=== PATIENT | male | born 1940 | race Caucasian/White ===

== ENCOUNTER → 2021-04-10 | Outpatient (CLI) | payer MEDICARE, OTHER ==
--- NOTE | 2021-04-10 15:26 | CARD ---
MR#: [id number] Date of Study: 04/10/2021 Ordering Physician: WILFRED BRUNNER, Referring Physician: WILFRED BRUNNER, Tech: Rashida Alamo, [facility] APPROVED REPORT EXAM: Two-dimensional and M-mode echocardiogram with Doppler and color Doppler. Other Information Quality : AverageHR: 69bpm Rhythm : LBBB INDICATION Arrhythmia 2D DIMENSIONS Left Atrium(2D)3.3 (1.6-4.0cm)IVSd1.0 (0.7-1.1cm) Aortic Root(2D)3.7 (2.0-3.7cm)LVDd5.9 (3.9-5.9cm) LVOT Diameter2.0 (1.8-2.4cm)PWd0.9 (0.7-1.1cm) LVDs4.5 (2.5-4.0cm)FS (%) 23.7 % SV80.5 mlLVEF(%)46.6 (>50%) Aortic Valve AoV Peak Pascual.111.5cm/sAoV VTI21.4cm AO Peak GR.5.0mmHgLVOT Peak Pascual.79.1cm/s LVOT VTI 15.97cmAO Mean GR.2mmHg JAMEL (VMAX)2.37ec8PZI (VTI)2.37cm2 Mitral Valve MV E Jfevdqaw59.1cm/sMV E Peak Gr.126mmHg MV DECEL OODR374gmPC A Ttayqdds06.1cm/s MV E Mean Gr.72mmHgE/A Ratio1.3 Tricuspid Valve TR P. Safkzgrk596ax/sRAP MXVBBUWU2cxXy TR Peak Gr.95ymFkYJGT30kbAq LEFT VENTRICLE The Left Ventricle is borderline dilated. There is borderline concentric left ventricular hypertrophy . The systolic function is severely impaired. EF 35% Septal motion suggestive of conduction defect. O therwise, there is severe global hypokinesis. Transmitral Doppler flow pattern is Grade II-pseudonorm al filling dynamics. RIGHT VENTRICLE The right ventricle is normal size. There is normal right ventricular wall thickness. The right ventr icular systolic function is normal. ATRIA The left atrium is borderline dilated. The right atrium size is normal. The interatrial septum is int act with no evidence for an atrial septal defect or patent foramen ovale as noted on 2-D or Doppler i maging. AORTIC VALVE The aortic valve is normal in structure and function. Doppler and Color Flow revealed trace aortic re gurgitation. There is no significant aortic valvular stenosis. Calculated aortic valve area is 2.4 cm 2 with maximum pressure gradient of 5 mmHg and mean pressure gradient of 3 mmHg. MITRAL VALVE The mitral valve is normal in structure and function. There is no evidence of mitral valve prolapse. There is no mitral valve stenosis. Doppler and Color-flow revealed mild mitral regurgitation. TRICUSPID VALVE The tricuspid valve is normal in structure and function. Doppler and Color Flow revealed trace tricus pid regurgitation with an estimated PAP of 36 mmHg. There is no tricuspid valve stenosis. PULMONIC VALVE The pulmonic valve is not well visualized. Doppler and Color Flow revealed mild pulmonic valvular reg urgitation. There is no pulmonic valvular stenosis. GREAT VESSELS The aortic root is normal in size. The IVC is normal in size and collapses >50% with inspiration. PERICARDIAL EFFUSION There is no evidence of significant pericardial effusion. Critical Notification Critical Value: No <Conclusion> The systolic function is severely impaired. EF 35% Septal motion suggestive of conduction defect. Otherwise, there is severe global hypokinesis. Doppler and Color-flow revealed mild mitral regurgitation. Signed by : Wilfred Brunner, Electronically Approved : 04/10/2021 15:25:25
== END ==
LOC: ECHO 10:56
PROVIDERS: ATTEND Internal Medicine Cardiovascular Disease
DX: I08.8 Other rheumatic multiple valve diseases (principal); I49.9 Cardiac arrhythmia, unspecified
CPT/HCPCS: 93306

== ENCOUNTER 2021-04-22 20:14 | Emergency (ER) | payer MEDICARE, OTHER ==
[~2021-04-22] VITALS: Ht 170.2 cm; Wt 64.5 kg
--- NOTE | 2021-04-22 20:18 | PHYS DOC ---
Past History Past Medical History: Anemia, Arthritis, CAD, Cancer, Hypertension, Prostatitis, UTI Past Medical History IV chemotherapy started , Pt. to be on oral therapy after two weeks Past Surgical History: No Surgical History Past Surgical History Resection of Common Duct and pancreas- Mass 02/01/2021 Alcohol Use: None Drug Use: None General Adult HPI: HPI: ". .. I having some abd. pain.... Down here on the right. It is a 10 out of 10 pain..". " I t feels like someone stabbing me in the back.. and it runs down to my lower Rt. Abdomen...." Patient is a 80 year old male who presents with above hx and complaints of rt. lower abdomen pain. Patient is retired of 35 years in [employer]. Patient states pain is started today and right lower quadrant. He did have chemotherapy on 04/20 for treatment of resected mass of his common duct and pancreas. Patient previously seen in 01/31 when he developed hepatorenal syndrome and was transferred to [facility] to Dr. Montanez and Dr. Schneider for care.. Patient denies any intake of bad food. Has been having normal stools. No history of fever and chills. No history of travel. No history of specific ill contacts. Clinically immunosuppressed because of chemotherapy. Pt. follows with Dr. Avila. Pt. follows at [place]. patient does have a past medical history of hypertension, prostate cancer, irregular heart rate, arthritis, anemia, hyponatremia, hyperkalemia, hyper magnesium, elevated LFTs, ileus, hepatorenal syndrome, arthritis urinary retention. Review of Systems: Review of Systems: Constitutional: Denies fever or chills Eyes: Denies change in visual acuity HENT: Denies nasal congestion or sore throat Respiratory: Denies cough or shortness of breath Cardiovascular: Denies chest pain or edema GI: Complains of right lower abdominal pain, nausea. Denies, vomiting, bloody stools or diarrhea : Denies dysuria Musculoskeletal: Denies back pain or joint pain Integument: Denies rash Neurologic: Denies headache, focal weakness or sensory changes Endocrine: Denies polyuria or polydipsia Lymphatic: Denies swollen glands Psychiatric: Denies depression or anxiety Family History: Family History: Noncontributory to presentation Current Medications: Current Meds: See nursing for home meds Allergies: Allergies: Allergies Coded Allergies Type Severity Reaction Last Updated Verified No Known Drug Allergies 04/10/21 No Physical Exam: PE: Constitutional: In acute distress, non-toxic appearance. [] HENT: Normocephalic, atraumatic, bilateral external ears normal, oropharynx moist, no oral exudates, nose normal. [] Eyes: PERRLA, EOMI, conjunctiva normal, no discharge. Glasses Neck: Normal range of motion, no tenderness, supple, no stridor. [] Cardiovascular:Heart rate regular rhythm, no murmur, PMI slightly to the left. Bedside monitor shows a bundle branch block. Lungs & Thorax: Bilateral breath sounds clear to auscultation [] Abdomen: Bowel sounds decreased, soft, wound to right lower quadrant, generalized tenderness, no masses, no pulsatile masses. Old surgery scar Skin: Warm, dry, no erythema, no rash. [] Back: No tenderness, no CVA tenderness. [] Extremities: No tenderness, no cyanosis, no clubbing, ROM intact, no edema. Arthritic changes. Mild psoas sign on right. No cording. Neurologic: Alert and oriented X 3, moves all extremities on request, does have distal sensory,, no focal deficits noted. [] Psychologic: Affect anxious, judgement normal, mood normal. [] EKG: EKG: My interpretation EKG shows a sinus rhythm at 65 bpm. Left axis. Left bundle. Abnormal EKG. At 2055 hrs. [] Radiology/Procedures: Radiology/Procedures: [][place] [address] IMAGING REPORT Signed PATIENT: APRIL ENRIQUEZ FACCOUNT: [id number] : 1940 LOCATION: ER AGE: 80 SEX: M EXAM STATUS: REG ER ORD. PHYSICIAN: DARIUS CHO MD REASON: abd pain with vomiting, pancreatic cancer - 75mls omni 300 PROCEDURE: CT CHEST ABD PELVIS W/CONTRAST CT chest with contrast, CT abdomen pelvis with contrast. HISTORY: Abdominal pain, vomiting, pancreatic cancer CT scan of the chest was done somewhat delayed from the contrast injection post contrast. There is bilateral gynecomastia. There are small bilateral pleural effusions. There are emphysematous changes in the lungs. There is a cons olidating infiltrate in the right upper lobe, which has mildly worsened compared to the prior exam. Infiltrative mass would be possible. There is increased infiltrate or infiltrative mass in the right lower lobe compared to the prior exam. There is also mild interval increase in the right middle lobe disease compared to the prior study. Patient has now developed infiltrate in the left lower lobe. There is peribronchial thickening. Lymphangitic tumor can have this pattern. There is mild infiltrate in the anterior lingula. Mediastinal lymph nodes are mildly prominent in the aortopulmonary window compared to the prior study. IMPRESSION: 1. Small bilateral effusions with increase from the prior study. 2. Peribronchial thickening and bilateral areas of infiltrate more on the right than on the left which could be pneumonia but infiltrative tumor or lymphangitic tumor can have this pattern as well, there has been worsening of the pattern since the prior CT. End impression CT abdomen pelvis CT abdomen pelvis was done following injection of 75 mL Omnipaque 300 contrast. A liver lesion is not identified. There is gas in the intrahepatic bile ducts. The patient's had a cholecystectomy. Spleen is unremarkable. Adrenal glands are normal. There is no left renal mass. There is right hydronephrosis and dilatation the proximal ureter. There is a 4 mm calculus in the proximal right ureter. There is increased stool in the colon. There is dilatation of the pancreatic duct. There is apparently been resection of the head of the pancreas. There is a low-density cyst or lymph node in front of the left renal vein unchanged from the prior study, measuring 1.5 cm. There is no ascites. Prostate is enlarged. Appendix is normal. IMPRESSION: 1. 4 mm calculus in the proximal right ureter with right hydronephrosis. 2. low-density lymph node measuring 1.5 cm anterior to the left renal vein. 3. No hepatic mass noted. 4. No new abdominal mass noted. PQRS Compliance Statement: One or more of the following individualized dose reduction techniques were utilized for this examination: 1. Automated exposure control 2. Adjustment of the mA and/or kV according to patient size 3. Use of iterative reconstruction technique Electronically signed by: Uriah Veloz MD (04/22/2021 11:09 PM) [facility] DICTATED AND SIGNED BY: URIAH VELOZ MD DATE: 04/22/21 [id number] CC: DARIUS CHO MD; FLETCHER AVILA ~MTH0 0 Heart Score: C/O Chest Pain: Yes HEART Score for Chest Pain: HEART Score for Chest Pain Response (Comments) Value History Moderately Suspicious 1 ECG Nonspecific Repolarizatio 1 Age > 65 2 Risk Factors 1 or 2 Risk Factors 1 Troponin < Normal Limit 0 Total 5 Risk Factors: Risk Factors: DM, Current or recent (<one month) smoker, HTN, HLP, family history of CAD, obesity. Risk Scores: Score 0 - 3: 2.5% MACE over next 6 weeks - Discharge Home Score 4 - 6: 20.3% MACE over next 6 weeks - Admit for Clinical Observation Score 7 - 10: 72.7% MACE over next 6 weeks - Early Invasive Strategies Course & Med Decision Making: Course & Med Decision Making Pertinent Labs and Imaging studies reviewed. (See chart for details) Patient push clear fluids. Patient take Cipro 500 mg twice daily. Patient take Flomax daily. Patient to take Tylenol and ibuprofen for pain. For marked pain may take Vicoprofen. If no improvement need return admission for pain ma karime. Impression: 1. Abdomen Pain 2. Renal colic-4 mm stone right 3. Recent episode hepatorenal syndrome 4. Anemia 11.1 hgb 5. Hypernatremia 146 [] Dragon Disclaimer: Owen Disclaimer: This electronic medical record was generated, in whole or in part, using a voice recognition dictation system. Departure Departure: Referrals: FLETCHER AVILA (PCP) Scripts Hydrocodone/Ibuprofen (HYDROCODONE-IBUPROFEN 7.5-200 ) 1 Each Tablet 1 TAB PO PRN Q6HRS PRN for PAIN, #30 TAB 0 Refills Prov: DARIUS CHO MD 04/23/21 Ondansetron Hcl (ZOFRAN) 4 Mg Tablet 8 MG PO QIDPRN PRN for nv, #30 TAB Prov: DARIUS CHO MD 04/23/21 Tamsulosin Hcl (FLOMAX) 0.4 Mg Cap.er.24h 0.4 MG PO DAILY for renal colic for 10 Days, #10 CAP.SR Prov: DARIUS CHO MD 04/23/21 Ciprofloxacin (CIPRO) 500 Mg/5 Ml Allison.mc.rec 500 MG PO BID for dysuria for 7 Days, MISC Prov: DARIUS CHO MD 04/23/21 Owen Disclaimer This chart was dictated in whole or in part using Voice Recognition software in a busy, high-work load, and often noisy Emergency Department environment. It may contain unintended and wholly unrecognized errors or omissions. Dragon Disclaimer This chart was dictated in whole or in part using Voice Recognition software in a busy, high-work load, and often noisy Emergency Department environment. It may contain unintended and wholly unrecognized errors or omissions. DARIUS CHO MD Apr 22, 2021 20:18
[2021-04-22] MEDS ORDERED: IOHEXOL 240 MG/ML 50ML VIAL. ONE (20:28)
[2021-04-22] MEDS: IV RINGERS SOLUTION,LACTATED 1,000 ML IV SCH (20:42)
[2021-04-22] MEDS: ONDANSETRON PF 4 MG/2 ML VIAL. IVP ONE ×2 (20:43→21:16)
[2021-04-22] MEDS: FAMOTIDINE 20 MG/2 ML VIAL IVP ONE (20:43)
[2021-04-22 21:00] LABS: BASO % 1 % (0-3); EOS # 0.2 x10^3/uL (0.0-0.7); EOS % 2 % (0-3); HEMATOCRIT 35.4 % (39.0-53.0); HEMOGLOBIN 11.1 g/dL (13.0-17.5); LYMPH # 1.3 x10^3/uL (1.0-4.8); LYMPH % 16 % (24-48); MEAN CORPUSCULAR HEMOGLOBIN 25 pg (25-35); MEAN CORPUSCULAR HGB CONC 32 g/dL (31-37); MEAN CORPUSCULAR VOLUME 79 fL (79-100); MONO # 0.2 x10^3/uL (0.0-1.1); MONO % 3 % (0-9); NEUT # 6.2 x10^3uL (1.8-7.7); NEUT % 79 % (31-73); PLATELET COUNT 170 x10^3/uL (140-400); RED BLOOD COUNT 4.49 x10^6/uL (4.30-5.70); RED CELL DISTRIBUTION WIDTH 15.2 % (11.5-14.5); WHITE BLOOD COUNT 7.9 x10^3/uL (4.0-11.0)
[2021-04-22 21:05] LABS: CALCIUM 8.6 mg/dL (8.5-10.1); CREATININE 0.9 mg/dL (0.7-1.3); GFR 80.8; POTASSIUM 4.1 mmol/L (3.5-5.1)
[2021-04-22] MEDS: MORPHINE SULFATE 10 MG/ML SYRINGE. SQ ONE (21:09)
[2021-04-22 21:11] LABS: ALBUMIN 3.4 g/dL (3.4-5.0); DIRECT BILIRUBIN 0.3 mg/dL (0.0-0.2); TOTAL BILIRUBIN 0.7 mg/dL (0.2-1.0); TOTAL PROTEIN 6.3 g/dL (6.4-8.2)
[2021-04-22] MEDS ORDERED: CONTRAST GIVEN. MC PRN (21:15)
[2021-04-22] MEDS: IOHEXOL 300 MG/ML 75 ML VIAL. IV ONE (22:08)
[2021-04-22] MEDS: IOHEXOL 240 MG/ML 50ML VIAL. PO ONE (22:08)
[2021-04-22] MEDS ORDERED: cefTRIAXone SODIUM 1 GM VIAL ONE (22:46)
[2021-04-22] MEDS: IPRATRPIUM/ALBUTEROL 0.5/2.5MG 3 ML NEBU. NEB ONE (22:48)
--- NOTE | 2021-04-22 23:11 | RAD ---
CT chest with contrast, CT abdomen pelvis with contrast. HISTORY: Abdominal pain, vomiting, pancreatic cancer CT scan of the chest was done somewhat delayed from the contrast injection post contrast. There is bi lateral gynecomastia. There are small bilateral pleural effusions. There are emphysematous changes in the lungs. There is a consolidating infiltrate in the right upper lobe, which has mildly worsened co mpared to the prior exam. Infiltrative mass would be possible. There is increased infiltrate or infil trative mass in the right lower lobe compared to the prior exam. There is also mild interval increase in the right middle lobe disease compared to the prior study. Patient has now developed infiltrate i n the left lower lobe. There is peribronchial thickening. Lymphangitic tumor can have this pattern. T here is mild infiltrate in the anterior lingula. Mediastinal lymph nodes are mildly prominent in the aortopulmonary window compared to the prior study. IMPRESSION: 1. Small bilateral effusions with increase from the prior study. 2. Peribronchial thickening and bilateral areas of infiltrate more on the right than on the left whic h could be pneumonia but infiltrative tumor or lymphangitic tumor can have this pattern as well, ther e has been worsening of the pattern since the prior CT. End impression CT abdomen pelvis CT abdomen pelvis was done following injection of 75 mL Omnipaque 300 contrast. A l iver lesion is not identified. There is gas in the intrahepatic bile ducts. The patient's had a remberto cystectomy. Spleen is unremarkable. Adrenal glands are normal. There is no left renal mass. There is right hydronephrosis and dilatation the proximal ureter. There is a 4 mm calculus in the proximal rig ht ureter. There is increased stool in the colon. There is dilatation of the pancreatic duct. There i s apparently been resection of the head of the pancreas. There is a low-density cyst or lymph node in front of the left renal vein unchanged from the prior study, measuring 1.5 cm. There is no ascites. Prostate is enlarged. Appendix is normal. IMPRESSION: 1. 4 mm calculus in the proximal right ureter with right hydronephrosis. 2. low-density lymph node measuring 1.5 cm anterior to the left renal vein. 3. No hepatic mass noted. 4. No new abdominal mass noted. PQRS Compliance Statement: One or more of the following individualized dose reduction techniques were utilized for this examinat ion: 1. Automated exposure control 2. Adjustment of the mA and/or kV according to patient size 3. Use of iterative reconstruction technique Electronically signed by: Uriah Veloz MD (04/22/2021 11:09 PM) [facility]
--- NOTE | 2021-04-22 23:26 | EKG ---
[address] [address] Test Date: 2021-04-22 Test Time: 20:55:20 Pat Name: APRIL ENRIQUEZ Department: Room: Gender: M Business Line Manager: BED 5 : 1940 Requested By: DARIUS CHO Order Number: [id number] Reading MD: Measurements Intervals Calypso Rate: 65 P: 30 MN: 172 QRS: -7 QRSD: 134 T: 118 QT: 466 QTc: 485 Interpretive Statements SINUS RHYTHM LEFTWARD AXIS LEFT BUNDLE BRANCH BLOCK ABNORMAL ECG RI6.02 No previous ECG available for comparison
[2021-04-23] MEDS ORDERED: TAMSULOSIN 0.4 MG CAP.ER.24H. PO ONE (00:28)
[2021-04-23] MEDS ORDERED: CIPROFLOXACIN HCL 500 MG TABLET ONE (00:28)
[2021-04-23] MEDS ORDERED: KETOROLAC 30 MG/ML VIAL. ONE (00:28)
[2021-04-23] MEDS: TAMSULOSIN 0.4 MG CAP.ER.24H. PO ONE (00:30)
[2021-04-23] MEDS: CIPROFLOXACIN HCL 500 MG TABLET PO ONE (00:30)
[2021-04-23] MEDS: KETOROLAC 30 MG/ML VIAL. IVP ONE (00:31)
[2021-04-23] MEDS ORDERED: ONDA4TAB7 PO (00:32)
[2021-04-23] MEDS ORDERED: TAMS0.4C97 PO (00:32)
[2021-04-23] MEDS ORDERED: HYDR-1179 PO (00:32)
[2021-04-23] MEDS ORDERED: CIPR500S2 PO (00:32)
[2021-04-23 00:38] LABS: BARBITURATES NEG (NEG); BENZODIAZEPINES NEG (NEG); CANNABINOIDS NEG (NEG); COCAINE NEG (NEG); METHADONE NEG (NEG); OPIATES POS (NEG); PHENCYCLIDINE NEG (NEG)
[2021-04-23 00:39] LABS: BILIRUBIN,URINE NEG (NEG); CLARITY,URINE CLEAR; COLOR,URINE YELLOW; GLUCOSE,URINE NEG (NEG); NITRITE,URINE NEG (NEG); UROBILINOGEN,URINE 0.2 mg/dL (0.2 mg/dL)
[2021-04-23 00:40] LABS: BACTERIA,URINE 0 /HPF (0-FEW); HYALINE CASTS, URINE OCC /HPF; SQUAMOUS EPITHELIAL CELL,UR OCC /LPF; WBC,URINE 0 /HPF (0-4)
--- NOTE | 2021-04-23 00:41 | RAD ---
Three-view acute abdominal series. HISTORY: Abdominal pain, vomiting, pancreatic cancer 3 views were taken for an acute abdominal series. There are bilateral areas of infiltrate in the lung s. Heart is normal in size. There is possible small left effusion. There is a Port-A-Cath on the righ t. There is no free air on the upright view the abdomen or abnormal air-fluid levels. There is modera te stool in the right colon. IMPRESSION: 1. Moderate stool in the colon. 2. Nonspecific gas pattern without definite obstruction. 3. No free air noted. 4. Bilateral areas of infiltrate. Electronically signed by: Uriah Veloz MD (04/23/2021 12:39 AM) [facility]
[2021-04-23 00:42] VITALS: BP 148/81
[2021-04-23 00:43] LABS: AMPHETAMINE/METHAMPHETAMINE NEG (NEG)
== END 2021-04-23 00:41 | disposition home or self-care (01) ==
LOC: ER 20:14
DX: N23 Unspecified renal colic (principal); K76.7 Hepatorenal syndrome; D64.9 Anemia, unspecified; E87.0 Hyperosmolality and hypernatremia; I10 Essential (primary) hypertension
CPT/HCPCS: 36415; 71260; 74022; 74177; 80048; 80076; 80307; 81001; 82150; 82550; 83690; 84484; 85025; 85610; 85730; 93005; 94640; 96361; 96372; 96374; 96375; 96376; 99285; J1885; J2270; J2405; J3490; J7120; Q9966; Q9967

== ENCOUNTER → 2021-09-21 | Outpatient (CLI) | payer MEDICARE, OTHER ==
[~2021-09-21] MED LIST: CIPR500S2 PO; HYDR-1179 PO; IOHEXOL 240 MG/ML 50ML VIAL. ONE; IOHEXOL 300 MG/ML 75 ML VIAL. IV ONE; IOHEXOL 300 MG/ML 75 ML VIAL. ONE; ONDA4TAB7 PO; TAMS0.4C97 PO
--- NOTE | 2021-09-21 16:53 | RAD ---
EXAM: CT Chest, Abdomen and Pelvis without IV contrast CLINICAL HISTORY: Reason: PANCREATIC ADENOCARCINOMA, TUMOR REMOVED 01/2021 AND CHEMO / Spl. Instructio ns: DRINKING 1055/ CALL [facility]S HX RT INGUINAL HERNIA REPAIR / History: COMPARISON: None. TECHNIQUE: Helical CT of the chest, abdomen and pelvis was performed without intravenous contrast. Ax ial, coronal and sagittal reformatted images were generated. ---PQRS compliance statement - One or more of the following individualized dose reduction techniques were utilized for this study: 1. Automated exposure control 2. Adjustment of the mA and/or kV according to patient size 3. Use of iterative reconstruction technique--- FINDINGS: Lack of intravenous contrast limits evaluation of solid organs, vasculature, and lymph nodes. Chest: Right port terminates within the distal SVC. Relative hypoattenuation of the blood pool to the myocar dium from anemia. Coronary calcifications are seen. No pericardial effusion. No pleural effusion. No pneumothorax. Within the constraints of this noncontrast examination, no mediastinal or hilar lymphad enopathy. Bilateral gynecomastia is seen. Thyroid is unremarkable. Emphysematous changes are seen. Linear opacities lung bases, middle lobe and lingula likely scarring/ atelectasis. Small tree-in-bud opacities are seen in the middle lobe. Abdomen and Pelvis: Intrahepatic biliary gas. No focal liver lesion. Spleen is unremarkable. Adrenal glands are normal. C hanges of Whipple procedure are suggested. There is contrast within the intrahepatic and extrahepatic biliary ducts likely postprocedural. Moderate colonic stool content is seen. Appendix is normal. No small or large bowel dilatation is see n. Bladder is unremarkable. Prostate is enlarged measuring 5.3 cm in transverse dimension. Aorta is norm al in caliber with atherosclerotic calcifications. Right upper pole renal cyst. No hydronephrosis. No hydroureter. No abdominal or pelvic lymphadenopath y. The previously seen low density structure anterior to the left renal vein is not seen on this exam ination. Bones: No aggressive osseous lesion is seen. Degenerative changes of spine are noted. IMPRESSION: 1. No thoracic, abdominal or pelvic lymphadenopathy. 2. Postsurgical changes of the pancreatic head without evidence for local recurrence on this CT exam ination without IV contrast. Electronically signed by: Tereso Tovar MD (09/21/2021 4:51 PM) [facility]
== END ==
LOC: CT 10:40
PROVIDERS: ATTEND Physician Assistant
DX: C25.0 Malignant neoplasm of head of pancreas (principal); I25.10 Atherosclerotic heart disease of native coronary artery without angina pectoris; N62 Hypertrophy of breast; J43.9 Emphysema, unspecified; N40.0 Benign prostatic hyperplasia without lower urinary tract symptoms; N28.1 Cyst of kidney, acquired; R19.5 Other fecal abnormalities; I70.0 Atherosclerosis of aorta; M47.819 Spondylosis without myelopathy or radiculopathy, site unspecified
CPT/HCPCS: 71250; 74176

== ENCOUNTER → 2021-10-02 | Outpatient (CLI) | payer MEDICARE, OTHER ==
[~2021-10-02] MED LIST changes: -IOHEXOL 240 MG/ML 50ML VIAL. ONE; -IOHEXOL 300 MG/ML 75 ML VIAL. ONE
--- NOTE | 2021-10-02 09:54 | RAD ---
PQRS Compliance Statement: One or more of the following individualized dose reduction techniques were utilized for this examinat ion: 1. Automated exposure control 2. Adjustment of the mA and/or kV according to patient size 3. Use of iterative reconstruction technique CT NECK SOFT TISSUE WITH IV CONTRAST 10/02/2021 8:24 AM Indication: Right-sided lump. History of pancreatic cancer. COMPARISON: None available. TECHNIQUE: Multiple axial CT images of the neck were obtained after intravenous demonstration of 75 c c Omnipaque 300. Coronal and sagittal reformats are provided. FINDINGS: No suspicious abnormality identified involving the visualized portions of the brain parenchyma and po sterior fossa. The skull base is normal. The visualized paranasal sinuses are well aerated. Orbital c ontents appear normal. The sella turcica and cavernous sinus regions appear intact. The mastoid air c ells are well aerated. The fossa of Rosenmuller is normal. Nasopharynx is normal in appearance. The parotid space contents a nd claim clerk space contents appear intact. The parapharyngeal spaces are normal. The submandibular contents appear intact. Oral cavity, floor of mouth and sublingual space appear normal.. Oropharynx is normal in appearance. The epiglottis, aryepiglottic folds, and piriform sinuses are nor mal. The vallecula appears normal. The larynx and trachea are normal. The thyroid gland is normal in appearance. The carotid space contents are normal. Mild intimal thickening identified at the carotid bifurcations . No pathologically enlarged cervical lymph nodes. There is focal venous ectasias suspected at the r ight neck base at the level of the thyroid gland measuring 1.3 x 1.7 cm. This could be further assess ed with thyroid ultrasound. There is also ectasia of the right subclavian vein. The perivertebral space contents are normal. The supraclavicular regions appear intact. The visualiz ed mediastinum is normal. Mild to moderate centrilobular pulmonary emphysema. No significant osseous abnormality. Right chest wall infusion port catheter is partially profiled. IMPRESSION: No pathologically enlarged cervical lymph nodes. No suspicious laryngeal or pharyngeal mass. There is focal venous ectasias suspected at the right neck base at the level of the thyroid gland josh suring 1.3 x 1.7 cm. This could be further assessed with thyroid ultrasound. Electronically signed by: Chanda Olivia MD (10/02/2021 9:51 AM) [facility]
== END ==
LOC: CT 08:19
PROVIDERS: ATTEND Radiology Radiation Oncology
DX: J43.2 Centrilobular emphysema (principal); I87.8 Other specified disorders of veins; R22.1 Localized swelling, mass and lump, neck; Z85.07 Personal history of malignant neoplasm of pancreas
CPT/HCPCS: 70491; Q9967